=== PATIENT | male | born 1990 | race Caucasian/White ===

== ENCOUNTER 2022-04-22 20:49 | Emergency (ER) | payer SELFPAY ==
[~2022-04-22] VITALS: Ht 167.6 cm; Wt 120.5 kg
[2022-04-22 20:50] VITALS: BP 133/87
== END 2022-04-22 23:26 | disposition left against medical advice (07) ==
LOC: M ED 20:49
DX: Z53.21 Procedure and treatment not carried out due to patient leaving prior to being seen by health care provider (principal)